=== PATIENT | female | born 1965 ===

== ENCOUNTER 2017-03-19 14:20 | Emergency (ER) | payer OTHER ==
[2017-03-19 15:05] LABS: BASOPHILS % (AUTO) 1 % (0-3); EOSINOPHILS % (AUTO) 2 % (0-9); HEMATOCRIT 37 % (35-47); MEAN CORPUSCULAR HGB CONC 35.3 gm/dl (32.0-36.0); MEAN CORPUSCULAR VOLUME 87 fL (81-99); MONOCYTES % (AUTO) 9.3 % (0-12); NEUTROPHILS % (AUTO) 72.4 % (37-80)
[2017-03-19] MEDS ORDERED: ALBUTEROL/IPRATROPIUM 1 VIAL SOL INH ONE (15:17)
[2017-03-19] MEDS ORDERED: ALBUTEROL/IPRATROPIUM 1 VIAL SOL ONE (15:18)
[2017-03-19 15:19] LABS: ALBUMIN 3.1 gm/dl (3.4-5.0); CALCIUM 8.6 mg/dl (8.5-10.1); POTASSIUM 3.8 mMol/L (3.5-5.1)
[2017-03-19 15:56] VITALS: BP 121/78; PULSE 84; RESP 24; TEMP 97.5; O2SAT 85
[2017-03-19] MEDS ORDERED: ENOXAPARIN 100 MG SOL SC SCH ×2 (16:00→16:21)
[2017-03-19] MEDS ORDERED: ENOXAPARIN 100 MG SOL SC ONE (16:13)
== END 2017-03-19 16:27 | disposition home or self-care (01) ==
LOC: ED 14:20
DX: M79.605 Pain in left leg (principal)
CPT/HCPCS: 36415; 80053; 85025; 85378; 96372; 99282; 99283; J1650; J7620

== ENCOUNTER 2017-05-29 11:57 | Emergency (ER) | payer OTHER ==
[2017-05-29] MEDS ORDERED: ALBUTEROL/IPRATROPIUM 1 VIAL SOL INH ONE (12:17)
[2017-05-29] MEDS ORDERED: DEXAMETHASONE 20 MG/5 ML (4 MG/ML SOL) IM ONE (12:17)
[2017-05-29 12:18] VITALS: TEMP 98.7
[2017-05-29] MEDS ORDERED: SOLUMEDROL 125 MG/2 ML 125 MG/2 ML PDS IM ONE (12:27)
[2017-05-29] MEDS ORDERED: SOLUMEDROL 125 MG/2 ML 125 MG/2 ML PDS ONE (12:28)
[2017-05-29] MEDS ORDERED: ALBUTEROL/IPRATROPIUM 1 VIAL SOL ONE (12:28)
[2017-05-29 12:48] LABS: BASOPHILS % (AUTO) 1 % (0-3); EOSINOPHILS % (AUTO) 2 % (0-9); HEMATOCRIT 41 % (35-47); MEAN CORPUSCULAR HGB CONC 33.7 gm/dl (32.0-36.0); MEAN CORPUSCULAR VOLUME 87 fL (81-99); MONOCYTES % (AUTO) 9.3 % (0-12); NEUTROPHILS % (AUTO) 71.5 % (37-80)
[2017-05-29 12:53] LABS: ABG PH 7.44 (7.35-7.45)
[2017-05-29 12:56] LABS: ALBUMIN 3.3 gm/dl (3.4-5.0); CALCIUM 8.9 mg/dl (8.5-10.1); POTASSIUM 3.2 mMol/L (3.5-5.1)
[2017-05-29 13:39] VITALS: BP 108/70; PULSE 71; RESP 16; O2SAT 93
== END 2017-05-29 13:35 | disposition home or self-care (01) ==
LOC: ED 11:57
DX: J44.1 Chronic obstructive pulmonary disease with (acute) exacerbation (principal); J44.0 Chronic obstructive pulmonary disease with (acute) lower respiratory infection; J18.9 Pneumonia, unspecified organism; Z72.0 Tobacco use
CPT/HCPCS: 36415; 36600; 71020; 80053; 82803; 85025; 87804; 93005; 99283; J2930; J7620

== ENCOUNTER 2017-06-12 09:35 | Emergency (ER) | payer OTHER ==
[2017-06-12] MEDS ORDERED: SODIUM CHLORIDE 0.9% FLUSH 10 ML SOL IV PRN (09:44)
[2017-06-12] MEDS ORDERED: NALOXONE HYDROCHLORIDE 0.4 MG/ML SOL ONE (09:50)
[2017-06-12] MEDS ORDERED: SODIUM CHLORIDE 0.9% 1000ML 1,000 ML IV ONE (09:50)
[2017-06-12] MEDS ORDERED: NALOXONE HYDROCHLORIDE 0.4 MG/ML SOL IV ONE (09:54)
[2017-06-12 10:10] LABS: HEMATOCRIT 40 % (35-47); MEAN CORPUSCULAR HGB CONC 33.3 gm/dl (32.0-36.0); MEAN CORPUSCULAR VOLUME 87 fL (81-99)
[2017-06-12 10:15] LABS: ABG PH 7.36 (7.35-7.45)
[2017-06-12 10:24] LABS: APPEARANCE,URINE Clear; BILIRUBIN,URINE NEGATIVE (NEGATIVE); COLOR,URINE Light yellow; GLUCOSE, URINE (UA) NEGATIVE (NEGATIVE); KETONES,URINE NEGATIVE (NEGATIVE); LEUKOCYTE ESTERASE ,URINE NEGATIVE (NEGATIVE); NITRATE,URINE NEGATIVE (NEGATIVE); OCCULT BLOOD,URINE NEGATIVE (NEG-TRACE); PH,URINE 7.5; UROBILINOGEN,URINE 0.2 (0.2-1.0 EU)
[2017-06-12 10:28] LABS: RBC,URINE 0-2 (0-3AV/HPF); TRICYCLIC ANTIDEPRESSANTS NEGATIVE (NEGATIVE); WBC,URINE 0-2 (0-5AV/HPF)
[2017-06-12 10:28] LABS: ALT 12 IU/L (14-63); CALCIUM 8.4 mg/dl (8.5-10.1); GLOM FILT RATE 53 mL/min (>60); POTASSIUM 3.4 mMol/L (3.5-5.1); SALICYLATE 6.6 mg/dl (2.8-30.0); SODIUM 139 mMol/L (136-145)
[2017-06-12 10:29] LABS: AMPHETAMINES NEGATIVE (NEGATIVE); METHADONE NEGATIVE (NEGATIVE); OPIATES(OP13) POSITIVE (NEGATIVE); OXYCODONE(OXY) NEGATIVE (NEGATIVE); PROPOXYPHENE(PPX) NEGATIVE (NEGATIVE)
[2017-06-12] MEDS ORDERED: PIPERACILLIN IV ONE (10:39)
[2017-06-12] MEDS ORDERED: SODIUM CHLORIDE 0.9% IV ONE (10:39)
[2017-06-12] MEDS ORDERED: TAZOBACT IV ONE (10:39)
[2017-06-12] MEDS ORDERED: PIPERACILLIN/TAZOBACT 3.375 GM PDS IV ONE ×2 (10:41→10:42)
[2017-06-12 10:44] LABS: BASOPHILS % (MANUAL) 0 % (0-3); EOSINOPHILS % (MANUAL) 1 % (0-9); LYMPHOCYTES % (MANUAL) 5 % (10-50)
[2017-06-12 10:45] LABS: NORMAL RBCS PRESENT
[2017-06-12] MEDS ORDERED: SODIUM CHLORIDE/KCL 20MEQ 1,000 ML IV ONE (11:15)
[2017-06-12] MEDS ORDERED: SODIUM CHLORIDE/KCL 20MEQ 1,000 ML IV SCH (11:15)
[2017-06-12] MEDS ORDERED: VANCOMYCIN HCL 500 MG PDS 1,000 MG in SODIUM CHLORIDE 0.9% 250 ML 250 ML IV SCH (12:00)
[2017-06-12 12:08] VITALS: TEMP 98.5
[2017-06-12] MEDS ORDERED: VANCOMYCIN HYDROCHLORIDE 500 MG PDS IV ONE (12:14)
[2017-06-12 12:25] LABS: ABG PH 7.34 (7.35-7.45)
[2017-06-12 12:26] VITALS: PULSE 100
[2017-06-12 12:32] VITALS: BP 125/79; RESP 17; O2SAT 93
== END 2017-06-12 12:47 | disposition short-term general hospital (02) ==
LOC: ED 09:35
DX: R41.82 Altered mental status, unspecified (principal); R09.02 Hypoxemia; S60.519A Abrasion of unspecified hand, initial encounter; V49.9XXA Car occupant (driver) (passenger) injured in unspecified traffic accident, initial encounter; R00.0 Tachycardia, unspecified; R40.2412 Glasgow coma scale score 13-15, at arrival to emergency department; I95.9 Hypotension, unspecified
CPT/HCPCS: 70450; 71250; 71275; 72125; 74176; 80053; 80305; 80307; 81001; 82803; 84703; 85007; 85027; 85378; 85610; 85730; 87040; 93005; 99291; J2310; J2543; J3370; Q9967

== ENCOUNTER 2017-10-24 09:58 | Emergency (ER) | payer OTHER ==
[2017-10-24] MEDS ORDERED: SODIUM CHLORIDE 0.9% 1000ML 1,000 ML IV ONE (10:17)
[2017-10-24] MEDS ORDERED: HYDROMORPHONE HCL 2 MG/ML SOL IV ONE ×2 (10:17→12:15)
[2017-10-24] MEDS ORDERED: HYDROXYZINE HYDROCHLORIDE 25 MG/ML SOL IM ONE (10:18)
[2017-10-24] MEDS ORDERED: HYDROMORPHONE HCL 2 MG/ML SOL ONE ×2 (10:27→12:17)
[2017-10-24] MEDS ORDERED: PROMETHAZINE HYDROCHLORIDE 25 MG/ML SOL IM ONE (10:45)
[2017-10-24 10:48] VITALS: TEMP 98.4
[2017-10-24] MEDS ORDERED: PROMETHAZINE HYDROCHLORIDE 25 MG/ML SOL ONE (10:49)
[2017-10-24 11:20] VITALS: BP 132/86; PULSE 75; RESP 22; O2SAT 89
== END 2017-10-24 13:15 | disposition home or self-care (01) ==
LOC: ED 09:58
DX: G43.909 Migraine, unspecified, not intractable, without status migrainosus (principal); Z72.0 Tobacco use
CPT/HCPCS: 70450; 96365; 96372; 96374; 99283; 99285; J1170; J2550

== ENCOUNTER 2017-10-25 17:06 | Emergency (ER) | payer OTHER ==
[2017-10-25] MEDS ORDERED: DEXAMETHASONE 20 MG/5 ML (4 MG/ML SOL) ONE (19:51)
[2017-10-25] MEDS ORDERED: PROCHLORPERAZINE EDISYLATE 5 MG/ML SOL ONE (19:51)
[2017-10-25] MEDS ORDERED: SUMATRIPTAN SUCCINATE 6 MG/0.5 ML SOL SC ONE (19:51)
[2017-10-25] MEDS: SUMATRIPTAN SUCCINATE 6 MG/0.5 ML SOL SC ONE (20:00)
[2017-10-25] MEDS: SODIUM CHLORIDE 0.9% 1000ML 1,000 ML IV ONE (20:00)
[2017-10-25] MEDS: PROCHLORPERAZINE EDISYLATE 5 MG/ML SOL IV ONE (20:00)
[2017-10-25] MEDS: DEXAMETHASONE 20 MG/5 ML (4 MG/ML SOL) IV ONE (20:01)
[2017-10-25] MEDS: DIPHENHYDRAMINE 50 MG/ML SOL IV ONE (20:30)
[2017-10-25] MEDS: HYDROMORPHONE HCL 2 MG/ML SOL IV ONE (20:35)
[2017-10-25] MEDS ORDERED: DIPHENHYDRAMINE 50 MG/ML SOL ONE (20:39)
[2017-10-25] MEDS ORDERED: HYDROMORPHONE HCL 2 MG/ML SOL ONE (20:40)
[2017-10-26 00:09] VITALS: BP 131/88; PULSE 81; RESP 16; TEMP 97.7; O2SAT 93
== END 2017-10-25 21:11 | disposition home or self-care (01) ==
LOC: ED 17:06
DX: G43.909 Migraine, unspecified, not intractable, without status migrainosus (principal); R11.0 Nausea
CPT/HCPCS: 96365; 96372; 96374; 96375; 99282; 99285; J0780; J1100; J1170; J1200; J3030

== ENCOUNTER 2018-03-24 14:23 | Emergency (ER) | payer OTHER ==
[2018-03-24 15:08] VITALS: TEMP 96.5
[2018-03-24 15:16] LABS: BASOPHILS % (AUTO) 1 % (0-3); EOSINOPHILS % (AUTO) 3 % (0-9); HEMATOCRIT 44 % (35-47); HEMOGLOBIN 14.5 gm/dl (12.0-15.5); LYMPHOCYTES % (AUTO) 29.9 % (10-50); MEAN CORPUSCULAR HEMOGLOBIN 28.1 pg (27.0-32.0); MEAN CORPUSCULAR HGB CONC 32.8 gm/dl (32.0-36.0); MEAN CORPUSCULAR VOLUME 86 fL (81-99); MONOCYTES % (AUTO) 6.6 % (0-12); NEUTROPHILS % (AUTO) 59.5 % (37-80)
[2018-03-24 15:29] LABS: ALBUMIN 3.3 gm/dl (3.4-5.0); BILIRUBIN,TOTAL 0.3 mg/dl (0.2-1.0); CALCIUM 8.8 mg/dl (8.5-10.1); CREATININE 0.75 mg/dl (0.60-1.00); POTASSIUM 3.2 mMol/L (3.5-5.1); TOTAL PROTEIN 6.8 gm/dl (6.4-8.2)
[2018-03-24 15:33] LABS: CARBON DIOXIDE 31.8 mEq/L (21-32)
[2018-03-24 16:21] VITALS: O2SAT 93
[2018-03-24 16:22] VITALS: BP 101/73; PULSE 71; RESP 22
== END 2018-03-24 16:08 | disposition home or self-care (01) ==
LOC: ED 14:23
DX: S20.212A Contusion of left front wall of thorax, initial encounter (principal)
CPT/HCPCS: 36415; 71101; 80053; 85025; 99282; 99283